=== PATIENT | male | born 1955 | race Hispanic/Latino ===

== ENCOUNTER → 2018-10-04 | Outpatient (CLI) | payer MEDICARE, OTHER ==
--- NOTE | 2018-10-05 07:48 | RADONC ---
RADIATION ONCOLOGY CONSULTATION NOTE DATE: 10/04/2018 CHART NUMBER: [id number] DIAGNOSIS: Prostate cancer. STAGE: IIC, [id number], Pat score 7 (4-3), grade group 3, PSA 10.9. ECOG PERFORMANCE STATUS: 0 Mr. Sinha is a very pleasant 63-year-old white male with the diagnosis of what appears to be a stage IIC, [id number] moderate to poorly differentiated Souris score 7 (4-3) adenocarcinoma of prostate with a PSA score of 10.9 who is presenting to us today for consideration of definitive external beam radiation therapy with IMRT/IGRT. HISTORY OF PRESENT ILLNESS: The patient was in his usual state of health until routine PSA was found to be 10.9 on 05/25/2018. On 08/29/2018, the patient underwent prostatic needle biopsy and pathology revealed a Pat score 7 (4-3) adenocarcinoma of the prostate with perineural invasion present. The tumor was bilateral. The patient has done well since biopsy and is now presenting for discussion of definitive external beam radiation therapy with IMRT/IGRT. PAST MEDICAL HISTORY: The patient's past medical history is positive for hypertension. He has had an appendectomy in the past and some type of stomach surgery for bleeding ulcer. ALLERGIES: The patient has no known drug allergies. SOCIAL HISTORY: The patient has smoked half a pack of cigarettes per day for 30 years. He does not abuse alcohol. FAMILY HISTORY: The patient's family history is positive for a cousin with prostate cancer. REVIEW OF SYSTEMS: The patient's review of systems is noncontributory. He denies nausea, vomiting, fevers, chills, night sweats, diplopia, headaches, anxiety or depression, anorexia, weight loss, visual disturbances, chest pain, urinary or bowel difficulties, bone pain or neurological problems. PHYSICAL EXAMINATION: The patient is a well-developed, well-nourished male in no acute distress. HEENT exam is normocephalic, atraumatic. Extraocular movements are intact. There is no palpable cervical, supraclavicular, infraclavicular, axillary, or inguinal lymphadenopathy present. Lungs are clear to auscultation and percussion. Heart has a regular rate and rhythm. Abdomen is benign with no hepatosplenomegaly, masses, or tenderness. Rectal examination reveals a normal anal sphincter tone. His prostate is somewhat enlarged and hard. I do not appreciate any distinct nodularity. Skeletal examination reveals no tenderness to pressure or percussion of the bony skeleton. Extremities reveal no clubbing, cyanosis, or edema. Neurologic exam is grossly intact as is the remainder of the physical examination. MEDICAL NECESSITY: IMRT/IGRT is clinically indicated for the highly conformal dose planning required. The target volume is in close proximity to critical structures, such as the rectum, bladder, small bowel, and femoral heads. The volume of interest must be covered with narrow margins to adequately protect immediately adjacent structures. The plan requires interpretation of complex testing such as CT localization. As noted above, special planning (IMRT) and localizing (IGRT) is required and essential to maximally protect sensitive normal tissue structures which cannot be accomplished using conventional 3-dimensional planning. ASSESSMENT: Clearly the patient is a candidate for external beam radiation therapy and I have so informed him. I have discussed with the patient in detail the potential benefits as well as possible acute and chronic sequelae of external beam radiation therapy. We discussed the logistics of treatment planning, simulation and subsequent fractionated daily radiation treatments. In addition, I talked to the patient about his other options including surgery. We discussed the benefits and drawbacks of each treatment modality. Following discussion the patient has decided he does wish to pursue eternal beam radiation therapy with IMRT. I have referred the patient back to Dr. Howell for placement of fiducial markers as well as discussion of hormonal therapy. I did discuss hormonal treatments and their implications with the patient at this consultation as well. Thank you for allowing us to participate in the care of this very pleasant gentleman. If I could be of any further assistance or provide you with any information, please free to contact me anytime. cc: MD Aaron Cook MD
== END ==
LOC: M ONCR 12:34
PROVIDERS: ATTEND Radiology Radiation Oncology
DX: C61 Malignant neoplasm of prostate (principal)

== ENCOUNTER → 2018-11-29 | Outpatient (RCR) | payer MEDICARE, OTHER ==
[2018-11-07 13:41] LABS: HEMATOCRIT 26.2 % (42.0-52.0); HEMOGLOBIN 8.1 g/dl (13.5-17.5); LYMPH % 42.5 % (24.0-44.0); MEAN CORPUSCULAR HEMOGLOBIN 22.5 pg (27.0-33.0); MEAN CORPUSCULAR HGB CONC 30.9 g/dl (32.0-36.5); MEAN CORPUSCULAR VOLUME 72.9 fl (80.0-96.0); NEUTROPHILS # 2.1 10^3/uL (1.8-7.7); NEUTROPHILS % 46.4 % (36.0-66.0); RED BLOOD COUNT 3.6 10^6/uL (4.30-6.10); WHITE BLOOD COUNT 4.5 10^3/uL (4.0-10.0)
--- NOTE | 2018-11-07 14:17 | RADONC ---
RADIATION ONCOLOGY SIMULATION NOTE DATE OF SERVICE: 11/07/2018 CHART #: [id number] Mr. Sinha was taken to the CT scan for CT simulation of his prostate field. CT was accomplished without difficulty or discomfort. Radiation treatment planning is underway and radiation treatments will begin subsequently. An immobilization device was created. It will be used throughout the course of treatment. It was created without difficulty or discomfort. I was physically present throughout the course of CT simulation.
--- NOTE | 2018-11-23 13:55 | RADONC ---
RADIATION ONCOLOGY PROGRESS NOTE DATE: 11/22/2018 CHART #: [id number] Mr. Sinha is presently at a dose of 720 cGy to his prostate and is tolerating treatments quite well at this point with no complaints related to his radiation therapy. He is having no urinary or bowel difficulties and no bone pain. REVIEW OF SYSTEMS: The patient's review of systems is noncontributory. Denies nausea, vomiting, fevers, chills, night sweats, diplopia, headaches, anxiety or depression, anorexia, weight loss, visual disturbances, chest pain, urinary or bowel difficulties, bone pain, or neurological problems. PHYSICAL EXAMINATION: The patient's skin is in good condition with no evidence of radiation change present. There is no moist or dry desquamation. The remainder of his physical exam remains unchanged. Mr. Sinha is tolerating treatments quite well and radiation will continue as scheduled.
--- NOTE | 2018-11-30 08:19 | RADONC ---
RADIATION ONCOLOGY PROGRESS NOTE DATE: 11/28/2018 CHART #: [id number] Mr. Sinha is presently at a dose of 1440 cGy to his prostate and is tolerating treatments quite well at this point with no complaints related to his radiation therapy. He is having no urinary or bowel difficulties and no bone pain. REVIEW OF SYSTEMS: The patient's review of systems is noncontributory. Denies nausea, vomiting, fevers, chills, night sweats, diplopia, headaches, anxiety or depression, anorexia, weight loss, visual disturbances, chest pain, urinary or bowel difficulties, bone pain, or neurological problems. PHYSICAL EXAMINATION: The patient's skin is in good condition with no evidence of moist or dry desquamation. The remainder of his physical exam remains unchanged. Mr. Sinha is tolerating treatments quite well and radiation will continue as scheduled.
== END ==
LOC: M ONCR 11-07 12:43
PROVIDERS: ATTEND Radiology Radiation Oncology
DX: C61 Malignant neoplasm of prostate (principal)

== ENCOUNTER → 2018-12-30 | Outpatient (RCR) | payer MEDICARE, OTHER ==
--- NOTE | 2018-12-05 12:59 | RADONC ---
RADIATION ONCOLOGY PROGRESS NOTE DATE OF SERVICE: 12/05/2018 CHART NUMBER: [id number] PROGRESS NOTE: Mr. Sinha is presently at a dose of 2340 cGy to his prostate and is tolerating treatments quite well at this point with no complaints related to his radiation therapy. He is having no urinary or bowel difficulties and no bone pain. REVIEW OF SYSTEMS: The patient's review of systems is noncontributory. He denies nausea, vomiting, fevers, chills, night sweats, diplopia, headaches, anxiety or depression, anorexia, weight loss, visual disturbances, chest pain, urinary or bowel difficulties, bone pain, or neurological problems. PHYSICAL EXAMINATION: The patient's skin is in good condition with no evidence of moist or dry desquamation. The remainder of his physical exam remains unchanged. Mr. Sinha is tolerating his treatments quite well, and radiation will continue as scheduled.
--- NOTE | 2018-12-12 14:33 | RADONC ---
RADIATION ONCOLOGY PROGRESS NOTE DATE: 12/12/2018 CHART NUMBER: [id number] Mr. Sinha, with the diagnosis of adenocarcinoma of the prostate, is currently receiving local regional radiotherapy and he is at a dose of 3240 cGy of an anticipated 7920 cGy. Things are going well as he has no major side effects. REVIEW OF SYSTEMS He specifically denies any nausea, vomiting, diarrhea, dysuria, hematuria or blood per rectum. His energy level is such that he can maintain most day-to-day activities without any alteration of his lifestyle. Skin irritation is denied. EXAMINATION FINDINGS: The skin within the irradiated volume shows neither erythema nor desquamation. Lymphatics: No palpable peripheral lymphadenopathy. The remainder of the physical examination is unchanged. IMPRESSION: Tolerating therapy well. PLAN: Treatments to continue. MTDD
[2018-12-15 12:15] LABS: APPEARANCE, URINE HAZY (CLEAR); BACTERIA, URINE AUTO NEGATIVE (NEGATIVE); BILIRUBIN, URINE AUTO NEGATIVE (NEGATIVE); BLOOD, URINE BLOOD 1+ (NEGATIVE); COLOR, URINE YELLOW (YELLOW); GLUCOSE, URINE (UA) AUTO NEGATIVE (NEGATIVE); KETONE, URINE AUTO NEGATIVE (NEGATIVE); LEUKOCYTE ESTERASE, URINE AUTO NEGATIVE (NEGATIVE); MUCUS, URINE LARGE (NEGATIVE); NITRITE, URINE AUTO NEGATIVE (NEGATIVE); PROTEIN, URINE AUTO NEGATIVE (NEGATIVE); RBC, URINE AUTO 1 /HPF (0-3); SPECIFIC GRAVITY URINE AUTO 1.025 (1.002-1.035); SQUAMOUS EPITHELIAL CELL UR AU 0 /HPF (0-6); WBC, URINE AUTO 0 /HPF (0-3)
--- NOTE | 2018-12-19 14:40 | RADONC ---
RADIATION ONCOLOGY PROGRESS NOTE DATE OF SERVICE: 12/19/2018 CHART NUMBER: [id number]. PROGRESS NOTE: Mr. Sinha is presently at a dose of 4140 cGy to his prostate and is tolerating treatments quite well at this point with no complaints related to his radiation therapy. He is having no urinary or bowel difficulties. No bone pain. REVIEW OF SYSTEMS: The patient's review of systems is noncontributory. He denies nausea, vomiting, fevers, chills, night sweats, diplopia, headaches, anxiety or depression, anorexia, weight loss, visual disturbances, chest pain, urinary or bowel difficulties, bone pain, or neurological problems. PHYSICAL EXAMINATION: The patient's skin is in good condition with no evidence of radiation change present. There is no moist or dry desquamation. The remainder of his physical exam remains unchanged. Mr. Sinha is tolerating treatments quite well, and radiation will continue as scheduled.
--- NOTE | 2018-12-27 15:20 | RADONC ---
RADIATION ONCOLOGY PROGRESS NOTE DATE: 12/27/2018 CHART NUMBER: Mr. Sinha is presently a dose of 5040 cGy to his prostate and is tolerating treatments quite well at this point with no complaints related to his radiation therapy. He is having no urinary or bowel difficulties and no bone pain. REVIEW OF SYSTEMS: The patient's review of systems is noncontributory. Denies nausea, vomiting, fevers, chills, night sweats, diplopia, headaches, anxiety or depression, anorexia, weight loss, visual disturbances, chest pain, urinary or bowel difficulties, bone pain, or neurological problems. PHYSICAL EXAMINATION: The patient's skin is in good condition with no evidence of radiation change present. There is no moist or dry desquamation. The remainder of his physical exam remains unchanged. Mr. Sinha is tolerating treatments quite well, and radiation will continue as scheduled.
== END ==
LOC: M ONCR 11-30 11:12
PROVIDERS: ATTEND Radiology Radiation Oncology
DX: C61 Malignant neoplasm of prostate (principal); Z79.899 Other long term (current) drug therapy

== ENCOUNTER 2019-01-23 11:19 | Outpatient (RCR) | payer MEDICARE, OTHER ==
--- NOTE | 2019-01-02 12:52 | RADONC ---
RADIATION ONCOLOGY PROGRESS NOTE DATE OF SERVICE: 01/02/2019 CHART NUMBER: [id number]. PROGRESS NOTE: Mr. Sinha with a diagnosis of adenocarcinoma of the prostate is currently receiving radiotherapy and is at a dose of 5580 cGy of an anticipated 7920 cGy. Thus far, treatments appear to be going relatively well, as he has no major complaints. REVIEW OF SYSTEMS: He specifically denies any nausea, vomiting, diarrhea, dysuria, hematuria, or blood per rectum. His energy level is such that he is able to maintain most of his day-to-day activities without any alteration of his lifestyle. Skin irritation is denied. EXAMINATION FINDINGS: Skin within the irradiated volume shows no significant erythema and certainly no focal desquamation. The remainder of the physical examination is unchanged. IMPRESSION: Tolerating therapy well. PLAN: Treatments to continue.
--- NOTE | 2019-01-09 14:38 | RADONC ---
RADIATION ONCOLOGY PROGRESS NOTE DATE: 01/09/2019 CHART NUMBER: [id number] Mr. Sinha is presently a dose of 6480 cGy to his prostate and is tolerating treatments quite well at this point with no complaints related to his radiation therapy. He is having no significant urinary or bowel difficulties and no bone pain. REVIEW OF SYSTEMS: The patient's review of systems is noncontributory. Denies nausea, vomiting, fevers, chills, night sweats, diplopia, headaches, anxiety or depression, anorexia, weight loss, visual disturbances, chest pain, urinary or bowel difficulties, bone pain, or neurological problems. PHYSICAL EXAMINATION: The patient's skin is in good condition with no evidence of moist or dry desquamation. The remainder of his physical exam remains unchanged. Mr. Sinha is tolerating treatments quite well and radiation will continue as scheduled.
--- NOTE | 2019-01-17 07:30 | RADONC ---
RADIATION ONCOLOGY PROGRESS NOTE DATE: 01/16/2019 CHART #: [id number] Mr. Sinha is presently at a dose of 7380 cGy to his prostate and is tolerating treatments quite well at this point with no complaints related to his radiation therapy. He is having no urinary or bowel difficulties and no bone pain. REVIEW OF SYSTEMS: The patient's review of systems is noncontributory. Denies nausea, vomiting, fevers, chills, night sweats, diplopia, headaches, anxiety or depression, anorexia, weight loss, visual disturbances, chest pain, urinary or bowel difficulties, bone pain, or neurological problems. PHYSICAL EXAMINATION: The patient's skin is in good condition with no evidence of radiation change present. There is no moist or dry desquamation. The remainder of his physical exam remains unchanged. IMPRESSION: The patient is tolerating treatments quite well and radiation will continue as scheduled.
--- NOTE | 2019-01-24 11:27 | RADONC ---
RADIATION ONCOLOGY THERAPY TREATMENT SUMMARY DATE: 01/23/2019 CHART NUMBER: [id number] DIAGNOSIS: Adenocarcinoma, prostate. STAGE: II C, [id number] C, Sunnys[place] score 7 (4+3), grade group 3, PSA 10.9. ECOG PERFORMANCE STATUS: 0 RADIATION TREATMENT SUMMARY: Plan of local regional radiotherapy administered with definitive intent. Date radiotherapy started 11/17/2018. Date radiotherapy completed 01/23/2019. Dose: The patient received a total of 7920 cGy administered in 44 fractions over 67 elapsed days. Prior to treatment delivery localization was accomplished upon our CT simulator and treatment portals were defined by the use of multileaf collimators. IMRT was the technique of choice chosen to deliver the entire treatment dose. IGRT was also employed as per our protocol. The patient was initially treated to 5400 cGy via IMRT/IGRT and thereafter, tenorio were reduced. An additional 2520 cGy were then administered with reduced portals bringing the total to the aforementioned 7920 cGy. Status of Tumor: There was no clinical evidence of distant metastatic spread during his course of radiotherapy nor was there clinical evidence of local regional progression. Tolerance: In general, treatments were quite well tolerated as he denied any significant nausea, vomiting, diarrhea, dysuria, hematuria, or blood per rectum. His energy level remained fairly constant during his radiotherapy and he was able to maintain most day-to-day activities without any significant alteration of his lifestyle. Skin irritation was denied. DISPOSITION: Return to clinic in approximately 1 month or p.r.n. and he was encouraged to return to his referring physicians as per their directions and instructions. Thank you for allowing us the opportunity of participation in the management of this very fine gentleman. cc: MD Aaron Cook MD
== END 2019-01-29 ==
LOC: M ONCR 11:19
PROVIDERS: ATTEND Radiology Radiation Oncology
DX: C61 Malignant neoplasm of prostate (principal)

== ENCOUNTER → 2019-08-23 | Outpatient (CLI) | payer MEDICARE, OTHER ==
--- NOTE | 2019-08-24 08:24 | RADONC ---
RADIATION ONCOLOGY FOLLOWUP NOTE DATE OF SERVICE: 08/23/2019 CHART NUMBER: [id number] DIAGNOSIS: Prostate cancer. STAGE: Stage II C, [id number], Pat score 7 (4+3), grade group III, PSA 10.9. ECOG PERFORMANCE STATUS: 0. FOLLOWUP NOTE: Mr. Sinha is a very pleasant 64-year-old white male with the diagnosis what appears to be a stage II C, [id number] moderate to poorly differentiated Pat score 7 (4+3) adenocarcinoma of prostate with a PSA score of 10.9 who is presenting to us today for routine followup visit 7 months post completion of external beam radiation therapy. The patient presents today reporting that he is doing quite well with no complaints at this time related to his radiation therapy or disease. He has no urinary or bowel difficulties and no bone pain. The patient's review of systems is noncontributory. Denies nausea, vomiting, fevers, chills, night sweats, diplopia, headaches, anxiety or depression, anorexia, weight loss, visual disturbances, chest pain, urinary or bowel difficulties, bone pain, or neurological problems. PHYSICAL EXAMINATION: The patient is a well-developed, well-nourished male in no acute distress. HEENT exam is normocephalic, atraumatic. Extraocular movements are intact. There is no palpable cervical, supraclavicular, infraclavicular, axillary, or inguinal lymphadenopathy present. Lungs are clear to auscultation and percussion. Heart has a regular rate and rhythm. Abdomen is benign with no hepatosplenomegaly, masses, or tenderness. Rectal examination reveals a normal anal sphincter tone. His prostate is smooth with no evidence of nodularity. Skeletal examination reveals no tenderness to pressure or percussion of the bony skeleton. Extremities reveal no clubbing, cyanosis, or edema. Neurologic exam is grossly intact, as is the remainder of the physical examination. ASSESSMENT: The patient is clinically EDISON at this time and will be seen by us again in 6 months for further followup. He will also continue to be followed by his other physicians as well. cc: MD Aaron Cook MD
== END ==
LOC: M ONCR 10:40
PROVIDERS: ATTEND Radiology Radiation Oncology
DX: C61 Malignant neoplasm of prostate (principal)
CPT/HCPCS: 36415; 84153; G0463

== ENCOUNTER → 2020-02-09 | Outpatient (CLI) | payer MEDICARE, OTHER ==
--- NOTE | 2020-02-15 19:39 | RADONC ---
RADIATION ONCOLOGY FOLLOWUP NOTE DATE: 02/09/2020 This is a telemedicine visit. The patient was informed of the risks including security breech, technological failure, inability to perform a comprehensive physical exam which could delay or prevent an accurate diagnosis, and potential complications from treatment decisions rendered over a telemedicine platform. The patient understands and consented to the use of telehealth services phone only. CHART NUMBER: [id number] DIAGNOSIS: Prostate cancer. STAGE: II C, T2c, N0, M0, Pat score 7 (4-3), grade group III, PSA 10.9 ECOG PERFORMANCE STATUS: Zero. FOLLOWUP NOTE: Mr. Sinha is a very pleasant 64-year-old white male with a diagnosis of what appears to be a stage II C, T2c, N0, M0 moderate to poorly differentiated Mcfarlan score 7 (4-3) adenocarcinoma of the prostate with a PSA score initially of 10.9, who is presenting to us today for routine followup visit 1 year post completion of external beam radiation therapy. The patient presents today reporting that he is doing quite well with no complaints at this time related to his radiation therapy or disease. He has no urinary or bowel difficulties and no bone pain. The patient's review of systems is noncontributory. He denies nausea, vomiting, fevers, chills, night sweats, diplopia, headaches, anxiety or depression, anorexia, weight loss, visual disturbances, chest pain, urinary or bowel difficulties, bone pain, or neurological problems. PHYSICAL EXAMINATION: Physical examination was deferred as per COVID-19 precautions. This was a telephone interview. ASSESSMENT: The patient is clinically doing quite well at this point. His PSA level on 02/05/2020 was 0.14. This is up slightly from previous PSA of 02/20/2019, which was 0.03. In light of this slight increase, I have scheduled him to return to us for routine followup in 3 months' time. We will continue to monitor him closely. He will also continue to be followed by his other physicians in the meantime. cc: MD Aaron Cook MD
== END ==
LOC: M ONCR 08:47
PROVIDERS: ATTEND Radiology Radiation Oncology
DX: C61 Malignant neoplasm of prostate (principal); Z92.3 Personal history of irradiation

== ENCOUNTER → 2020-05-17 | Outpatient (CLI) | payer MEDICARE, OTHER ==
--- NOTE | 2020-05-22 15:28 | RADONC ---
Radiation Oncology Hx/FUP Radiation Oncology Hx/FUP Date of Service: May 22, 2020 Pt Identifier Deniz Sinha is a 65 year old male seen for a followup visit today at the department of radiation oncology for a history of unfavorable intermediate risk prostate cancer T1c Burkett 4+3=7 PSA 10.9 s/p EBRT 79.2 Gy in 44 fractions completed 01/23/19. Reports he had an ADT injection although in consulting his paper records here and the notes I have from Dr. Howell, I see no report of this. Diagnosis/Treatment History Oncologic History PSA trend: 05/21/20 0.15 ng/ml 02/05/20 0.14 02/20/19 0.04 05/25/18 10.9 04/15/17 8.5 10/15/16 10.98 Interval History Feels well. 1-2 x nocturia stable. No significant daytime frequency. Has intermittent BRBPR when he strains, just on the paper when he wipes. Not copious. Has hemorrhoids. Has no libido since RT. Thinks he received a hormone injection. Has been asked to try viagra and cialis but is reticent to try these because he has HTN on [address] Howell every 6 months as well. Current Therapy Surveillance Stage Unfavorable intermediate risk prostate cancer T1c Burkett 4+3=7 PSA 10.9 Social History: Non-smoker Non-drinker Review of Systems Review of Systems Constitutional: Denies: ROS Unabtainable, Chills, Fever, Malaise, Night Sweats, Weakness, Fatigue, Weight Loss, Lethargy, Normal appetite, Other symptoms Eyes: Denies: Pain, Vision change, Conjunctivae inflammation, Eyelid inflammation, Redness, Other HEENT: Denies: Head Aches, Ear Pain, Dysphagia, Sinus Congestion, Post Nasal Drip, Sore Throat, Epistaxis, Other Symptoms Skin: Denies: Rash, Lesions, Jaundice, Bruising, Other Breast: Denies: New Breast Lumps / Masses, Nipple Retraction, Nipple Discharge, Breast Skin Changes, Breast Pain or Tenderness, Other Breast Complaints Gastrointestinal: Denies: Nausea, Vomiting, Abdominal Pain, Diarrhea, Constipation, Melena, Hematochezia, Other Symptoms Genitourinary: Denies: Dysuria, Frequency, Incontinence, Hematuria, Retention, Other Symptoms Hematologic: Denies: Bruising, Bleeding Excessively, Petecchia, Purpura, Enlarged Lymph Nodes, Other Hematologic Endocrine: Denies: Polydipsia, Polyphagia, Polyuria, Heat Intolerance, Cold Intolerance, Other Endocrine Sx Musculoskeletal: Denies: Neck pain, Shoulder pain, Arm pain, Back pain, Hand pain, Leg pain, Foot pain, Joint pain, Muscle pain, Spasms, Gout, Joint sweling, Muscle stiffness, Midthoracic pain, Other Neurological: Denies: Weakness, Numbness, Incoordination, Change in Speech, Confusion, Seizures, Other Symptoms Psych: Denies: Mood Normal, Anxiety, Depression, Memory Issues, Thoughts of Self Harm, Anger, Thoughts of harming Other, Other Psych Physical Examination Vital Signs Ht 74" Wt 185 lb BMI 23 T 98 P 68 RR 18 BP 130/68 O2 98% Pain 0 Fatigue 0 General Exam: Positive: Alert, Cooperative, No Acute Distress Eye Exam: Positive: PERRLA, EOMI ENT EXAM: Positive: Atraumatic, Pharynx Normal Neck Exam: Positive: Supple Chest Exam: Positive: Clear to auscultation, Normal air movement Heart Exam: Positive: Rate Normal, Regular Rhythm Abdomen Exam: Positive: Normal bowel sounds, Soft; Negative: Tenderness Extremity Exam: Negative: Edema Skin Exam: Positive: Nl turgor and temperature Neuro Exam: Positive: Normal Gait, Normal Speech, Cranial Nerves 3-12 NL Psych Exam: Positive: Mental status NL, Mood NL, Anxiety Other Physical Findings Deferred exam, stable low PSA Diagnostic and Laboratory Diagnostic Review Radiologic images, relevant labs and pathology reports were personally reviewed and discussed with Mr. Sinha. Assessment and Plan Impression Assessment Mr. Sinha is a 65 year old male with a history of unfavorable intermediate risk prostate cancer T1c Burkett 4+3=7 PSA 10.9 s/p EBRT 79.2 Gy in 44 fractions completed 01/23/19. Reports he had an ADT injection although in consulting his paper records here and the notes I have from Dr. Howell, I see no report of this. I will attempt to clarify with Dr. Howell's office whether he had ADT or not as this may explain his ED, which he reports was not present prior to treatment. He has no significant urinary symptoms or GI side effects from RT. His PSA is stable and low, Thus over a year removed from RT I am comfortable seeing him again in 12 months with a PSA check. He is set to see Dr. Howell soon and hopefully we could establish a staggered schedule for PSA surveillance as I do not think it is necessary to check PSA more than q6m in his case. Performance Status ECOG 0 Plan 12 months with PSA Mr. Sinha was encouraged to call with questions or concerns in the interim period. PRACHI SPRING MD May 22, 2020 15:28
== END ==
LOC: M ONCR 12:11
PROVIDERS: ATTEND General Practice
DX: C61 Malignant neoplasm of prostate (principal)

== ENCOUNTER → 2020-05-22 | Outpatient (CLI) | payer MEDICARE, OTHER | LOC: M ONCR 10:04 | PROVIDERS: ATTEND General Practice | DX: C61 Malignant neoplasm of prostate (principal) ==

== ENCOUNTER → 2021-05-28 | Outpatient (CLI) | payer MEDICARE, OTHER ==
--- NOTE | 2021-05-28 15:14 | RADONC ---
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 Diagnosis/Treatment History Oncologic History PSA trend: 05/27/21 0.37 05/21/20 0.15 02/05/20 0.14 02/20/19 0.04 05/25/18 10.9 04/15/17 8.5 10/15/16 10.98 Interval History Deniz has ongoing BRBPR. Has been receiving iron infusions periodically for this. He reports he had a colonoscopy which was unrevealing. He has a referral pending to [facility]. He has no urinary complaints other than stable 1-2 x nocturia. Current Therapy Surveillance Stage Unfavorable intermediate risk prostate cancer T1c [place] 4+3=7 PSA 10.9 Social History: Non-smoker Non-drinker Review of Systems Review of Systems Constitutional: Denies: Weakness, Fatigue Eyes: Denies: Pain Pulmonary: Denies: Dyspnea Cardiovascular: Denies: Chest Pain Gastrointestinal: Reports: Hematochezia; Denies: Abdominal Pain Genitourinary: Denies: Dysuria, Frequency, Incontinence Hematologic: Denies: Bruising, Bleeding Excessively Neurological: Denies: Weakness, Numbness Psych: Reports: Mood Normal Physical Examination Vital Signs Wt 183 lbs T 96.6 P 53 RR 16 BP 146/77 O2 100% Pain 0 Fatigue 0 General Exam: Alert, Cooperative, No Acute Distress Eye Exam: PERRLA, EOMI ENT EXAM: Atraumatic Neck Exam: Supple Chest Exam: Clear to auscultation Heart Exam: Rate Normal Abdomen Exam: Soft Extremity Exam: Negative: Edema Skin Exam: Nl turgor and temperature Neuro Exam: Normal Gait, Normal Speech, Cranial Nerves 3-12 NL Psych Exam: Mental status NL Diagnostic and Laboratory Diagnostic Review Radiologic images, relevant labs and pathology reports were personally reviewed and discussed with Mr. Sinha. Assessment and Plan Impression Assessment Mr. Sinha is a 66 year old male with a history of unfavorable intermediate risk prostate cancer T1c [place] 4+3=7 PSA 10.9 s/p EBRT 79.2 Gy in 44 fractions completed 01/23/19. 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 I explained that the conservative management of this involves steroid suppositories. He is not interested in these. He would be eligible for endoscopic laser or sclerotherapy, sounds as though his PCP is setting him up for this. His PSA remains low, he continues to see Dr. Howell twice annually, therefore he can see me PRN from now on. Performance Status ECOG 1 Plan Follow up PRN Will continue to follow with Dr. Howell for PSA checks Mr. Sinha was encouraged to call with questions or concerns in the interim period. Billing Statement Total time of [20] minutes was spent preparing for the visit [2], obtaining HPI [4], examining the patient [1], reviewing diagnostic tests [2], discussing management options [6], coordinating care [0], and writing this note [5]. PRACHI SPRING MD May 28, 2021 15:14
== END ==
LOC: M ONCR 13:56
PROVIDERS: ATTEND General Practice
DX: C61 Malignant neoplasm of prostate (principal); K92.1 Melena; R35.1 Nocturia; Z92.3 Personal history of irradiation